=== PATIENT | female | born 1965 | race Caucasian/White ===

== ENCOUNTER 2019-11-26 10:38 | Day surgery (SDC) | payer OTHER, MEDICAID, SELFPAY ==
[2019-11-26] VITALS (7 sets, daily range): BP systolic 117–138; BP diastolic 73–98; PULSE 52–610; RESP 11–16; TEMP 36.4–36.6; O2SAT 99–100; BMI 28.2
--- NOTE | 2019-11-26 | PATH_ITS ---
[facility] Accession Number: [id number] . 01 Material submitted: . PART A: sigmoid colon - SIGMOID COLON POLYP PART B: rectum - RECTAL POLYP . 02 Diagnosis: A. Sigmoid Colon, Polyp: Hyperplastic polyp. . B. Rectum, Polyp: Hyperplastic polyp. MRV 11/27/2019 1000 Local . 02 Electronically signed: . Willie Vergara MD, PhD, Pathologist NPI- [id number] . 01 Gross description: . Part A: SIGMOID COLON POLYP: Received in formalin are 3 fragment(s) of fabian, soft tissue measuring 0.1 x 0.1 x 0.1 cm to 0.3 x 0.3 x 0.2 cm submitted entirely in 1 cassette(s) Part B: RECTAL POLYP: Received in formalin are 2 fragment(s) of fabian, soft tissue measuring 0.1 x 0.1 x 0.1 cm to 0.4 x 0.4 x 0.2 cm submitted entirely in 1 cassette(s) /[facility] [place] 11/26/2019 1948 Local . 02 Pathologist provided ICD-10: K63.5, K62.1 . 02 CPT . 644090, 309188 Performed at: 01 [facility] [address], [place], [place] [id number] MD Da Sanchez MD Phone: [phone] Performed at: 02 [facility] [address] [place], [place] [id number] MD Wendy King MD Phone: [phone]
[2019-11-26] MEDS: SODIUM CHLORIDE 0.9% 1,000 ML 200 ML IV (11:05)
--- NOTE | 2019-11-26 11:30 | PM.HP.1 ---
History of Present Illness History of Present Illness Date Patient Seen: 11/26/19 Time Patient Seen: 11:30 Chief complaint: [id number] Narrative: Patient is woman here for screening colonoscopy. This is her 1st exam. She has not had any recent symptoms except for a small lump near her anus which she thinks has gone away Patient History Family & Social History Social History: household members spouse Tobacco & Substance use: Tobacco type cannabis/marijuana Smoking Status Former smoker alcohol intake never Substance Use Type marijuana Meds Home Medications and Allergies Home Medications Medication Instructions Recorded Confirmed Type No Known Home Medications 11/26/19 11/26/19 History Allergies Allergy/AdvReac Type Severity Reaction Status Date / Time latex Allergy Verified 11/26/19 11:01 petrolatum,white AdvReac Mild Verified 11/26/19 11:01 [From Petroleum Jelly] Review of Systems Review of Systems ROS: Yes All systems reviewed with the patient and are negative except as otherwise documented Exam Vital Signs (past 8 hours): - 11/26/19 11:08 Temperature 97.7 F Pulse Rate 72 Respiratory Rate 16 Blood Pressure 126/76 Pulse Oximetry 100 Oxygen Delivery Method Room Air Narrative Exam Narrative: Pleasant cooperative patient no apparent distress. Lungs are clear to auscultation. No rales or rhonchi. Heart regular rate and rhythm no murmur gallop. Abdomen is soft nontender without mass. No obvious hernias. Patient is alert and oriented x3. Assessment & Plan Assessment & Plan narrative: The patient for a screening colonoscopy. I have discussed the procedure with them. Risks of bleeding, perforation which would necessitate major operation, failure to find remove all lesions, the potential tattoo were all discussed. All questions were answered. They wished to proceed.
--- NOTE | 2019-11-26 11:32 | PM.PREOP ---
Pre-operative Note Interval Note History & Physical reviewed/Exam performed by Physician: Yes Changes to H&P: No ASA Class (for procedural sedation): I
[2019-11-26] MEDS: fentaNYL 250 MCG/5 ML INJ IV (12:05)
[2019-11-26] MEDS: MIDAZOLAM 5 MG/ML VIAL 4 MG IV (12:05)
--- NOTE | 2019-11-26 12:10 | PM.OP.ENDO ---
Operative Date/Time/Diagnoses Date of procedure: 11/26/19 Time of procedure: 12:10 Pre-op diagnosis: Screening exam. This is her 1st colonoscopy. Post-op diagnosis: same (Two small polyps removed. Extensive sigmoid diverticulosis with tortuosity.) Procedure & Clinicians Study performed: Colonoscopy with cold biopsy Same procedure as scheduled: Yes Indications: Screening for colon cancer Surgeon: Garry Watson Procedure Notes SCOAP/Timeout: Perform Procedure in detail: The patient was placed in the left lateral decubitus position and underwent IV sedation directed by the surgeon consisting of fentanyl and Versed. Digital exam was unremarkable. The scope was inserted and advanced through the rectum into the sigmoid, descending, transverse, and ascending colon. The patient had a very large number of sigmoid diverticuli with some tortuosity and narrowing. There also was a small polyp seen in the sigmoid which was biopsied and removed.. The cecum was reached identified by the ileocecal valve and the appendiceal opening. The ileocecal valve was successfully cannulated. The terminal ileum was normal in appearance. The scope was gradually brought out. One additional Polyp were found at the rectum and was biopsied and removed.. The scope ultimately was retroflexed in the rectum. The appearance was normal except for some minor scarring.. The scope was removed and the patient tolerated the procedure well. The prep was very good. Scope withdrawal time: 9 minutes Sedation minutes: 27 Findings: diverticulosis and polyp Specimen(s): other (Polyps) Complications: none Post-procedure Recommendations: Colonscopy in 5 years Follow up: as needed Disposition: PACU
== END 2019-11-26 13:08 | disposition home or self-care (01) ==
PROVIDERS: PCP Registered Nurse; Referring Provider Specialist; Visit Provider Specialist
PROC: 0DJD8ZZ Inspection of Lower Intestinal Tract, Via Natural or Artificial Opening Endoscopic (ICD-10-PCS; CPT 45378; principal; 2019-11-26 11:45)
DX: Z12.11 Encounter for screening for malignant neoplasm of colon (principal); K57.30 Diverticulosis of large intestine without perforation or abscess without bleeding; K63.5 Polyp of colon; K62.1 Rectal polyp
CPT/HCPCS: 45380; 99152; 99153; J2250; J3010

== ENCOUNTER → 2020-01-22 13:44 | Outpatient (CLI) | payer OTHER, MEDICAID, SELFPAY | PROVIDERS: PCP Nurse Practitioner Family; Visit Provider Nurse Practitioner Family | DX: R23.8 Other skin changes (principal); S61.002A Unspecified open wound of left thumb without damage to nail, initial encounter | CPT/HCPCS: 87070; 87075; 87077; 87186; 87205; 87255 ==

== ENCOUNTER → 2020-05-28 11:23 | Outpatient (CLI) | payer OTHER, MEDICAID, SELFPAY ==
[2020-05-28 12:42] LABS: Hematocrit 40.5 % (36-46); Hemoglobin 13.5 g/dL (12.0-16.0); Mean Corpuscular HGB Conc 33.5 % (30-36); Mean Corpuscular Hemoglobin 30.7 PG (26-34); Mean Corpuscular Volume 91.6 fL (80-100); Platelet Count 409 X10^3/uL (150-400); Red Blood Cell Count 4.42 X10^6/uL (4.0-5.2); Red Cell Distribution Width 13.4 % (11.6-14.8); White Blood Cell Count 7.5 X10^3/uL (4.5-11.0)
[2020-05-28 13:13] LABS: Alanine Aminotransferase 23 IU/L (<35); Albumin 4.5 g/dL (3.5-5.0); Albumin Globulin Ratio 1.5 (1.0-2.8); Alkaline Phosphatase 82 U/L (38-126); Aspartate Aminotransferase 28 IU/L (14-36); BUN Creatinine Ratio 17.7 (6-22); Bilirubin Total 0.8 mg/dL (0.2-1.3); Blood Urea Nitrogen 14 mg/dL (7-17); Calcium 9.9 mg/dL (8.4-10.2); Carbon Dioxide 27 mmol/L (22-32); Chloride 103 mmol/L (98-107); Cholesterol 280 mg/dL (140-199); Estimated Glomerular Filt Rate > 60.0 mL/min (>60); Glucose 81 mg/dL (70-100); HDL Cholesterol 52 mg/dL (40-60); HEMOLYSIS < 15 (0-50); LDL Cholesterol Calculated 168 mg/dL (<100); Sodium 137 mmol/L (137-145); Total Protein 7.5 g/dL (6.3-8.2); Triglycerides 302 mg/dL (35-150)
== END ==
PROVIDERS: PCP Nurse Practitioner Family; Referring Provider Nurse Practitioner Family; Visit Provider Nurse Practitioner Family
DX: Z00.00 Encounter for general adult medical examination without abnormal findings (principal); Z13.6 Encounter for screening for cardiovascular disorders
CPT/HCPCS: 36415; 80053; 80061; 85027

== ENCOUNTER → 2020-06-17 13:43 | Outpatient (CLI) | payer OTHER, MEDICAID, SELFPAY ==
--- NOTE | 2020-06-17 14:08 | DI.ECHO.S_ITS ---
Echocardiogram Report + + :Name: ILA PERRY Study Date: 06/17/2020 Height: 66 in : :[facility] Weight: 180 lb : : Gender: Female BSA: 1.9 m2 : :: 1965 Age: 55 yrs BP: 160/83 mmHg: :Reason For Study: PALPITATIONS : :Ordering Physician: EVITA, : :WILBERTO Performed By: Marcela Stewart : :Referring: WILBERTO JAMA : + + Interpretation Summary The left ventricle is normal in size and wall thickness. Left ventricular systolic function is normal without focal wall motion abnormalities. The ejection fraction is estimated to be 60-65%. Diastolic parameters suggest probable normal left ventricular diastolic function and normal filling pressures. The right ventricle is normal in size and function. The left atrial size is normal. Right atrial size is normal. There is no significant valvular heart disease. The aortic root is normal size. Procedure: A two-dimensional transthoracic echocardiogram with color flow and Doppler was performed. The study quality was technically adequate. There is no prior echocardiogram noted for this patient. Left Ventricle: The left ventricle is normal in size and wall thickness. Left ventricular systolic function is normal without focal wall motion abnormalities. The ejection fraction is estimated to be 60-65%. Diastolic parameters suggest probable normal left ventricular diastolic function and normal filling pressures. Right Ventricle: The right ventricle is normal in size and function. Atria: The left atrial size is normal. Right atrial size is normal. There is no Doppler evidence for an interatrial shunt. Mitral Valve: The mitral valve is normal in structure and function. Aortic Valve: The aortic valve is trileaflet. The aortic valve opens well. There is no aortic valve stenosis. No aortic regurgitation is present. Tricuspid Valve: The tricuspid valve is normal in structure and function. Pulmonary artery pressures cannot be estimated because of the lack of a measurable TR jet velocity but the IVC suggests a CVP of around 3 mmHg. There is a trace or physiologic amount of tricuspid regurgitation. Pulmonic Valve: The pulmonic valve leaflets are thin and pliable; valve motion is normal. There is no pulmonic valvular regurgitation. There is no significant valvular heart disease. Great Vessels: The aortic root is normal size. The dimensions of the ascending aorta are normal. The IVC is of normal diameter and collapses greater than 50% with a sniff. This suggests a low right atrial pressure of 3 mm Hg. Pericardium/ Pleura There is no pericardial effusion. There is no pleural effusion. MMode/2D Measurements & Calculations LVIDd: 4.0 cm LVOT diam: 2.1 cm LVIDs: 2.7 cm Ao root diam: 3.1 cm FS: 33.7 % asc Aorta Diam: 3.2 cm EPSS: 0.57 cm Ao Arch Diam (Prox Trans): 2.4 cm IVSd: 0.87 cm LVPWd: 0.89 cm LV gambino. diameter/BSA (cm/m^2): 2.1 LV sys. diameter/BSA (cm/m^2): 1.4 LA A2 area: 13.9 cm2 RA long axis: 4.2 cm LA A4 area: 13.0 cm2 RA area: 11.1 cm2 LA length (vol): 4.0 cm RA vol: 24.5 ml LA vol: 38.3 ml RA : 12.8 ml/m2 LA vol index: 20.0 ml/m2 IVC diam: 1.3 cm RVD1 (basal): 3.4 cm TAPSE: 2.3 cm Doppler Measurements & Calculations Ao V2 max: 127.5 cm/sec LVOT Max Som: 89.1 cm/sec Ao V2 mean: 85.7 cm/sec LV V1 max P.2 mmHg Ao max P.5 mmHg LV V1 VTI: 19.4 cm Ao mean P.3 mmHg LEIGH ANN(I,D): 2.4 cm2 Ao V2 VTI: 27.7 cm LEIGH ANN(V,D): 2.4 cm2 sev ratio: 0.70 LEIGH ANN indexed to BSA (cm^2/m^2): 1.3 MV E max som: 77.1 cm/sec PA V2 max: 81.5 cm/sec MV A max osm: 74.1 cm/sec PA V2 mean: 54.6 cm/sec MV E/A: 1.0 PA mean P.4 mmHg Med Peak E' Som: 9.5 cm/sec PA pr(Accel): 20.8 mmHg E/E' med: 8.1 Lat Peak E' Som: 12.7 cm/sec E/E' lat: 6.1 E/e' average: 7.1 MV dec time: 0.19 sec SV(LVOT): 67.9 ml Reading Physician:07:40 PM
== END ==
PROVIDERS: PCP Nurse Practitioner Family; Referring Provider Nurse Practitioner Family; Visit Provider Nurse Practitioner Family
DX: R00.2 Palpitations (principal)
CPT/HCPCS: 93306

== ENCOUNTER → 2020-07-31 10:55 | Outpatient (CLI) | payer OTHER, MEDICAID, SELFPAY ==
--- NOTE | 2020-07-31 10:56 | DI.MG.S_ITS ---
BILATERAL DIGITAL SCREENING MAMMOGRAM 3D/2D WITH CAD: 07/31/2020 CLINICAL: Routine screening. Family history of breast cancer. Comparison is made to exams dated: 02/15/2016 mammogram and 02/18/2014 mammogram - [facility]. There are scattered fibroglandular elements in both breasts. Current study was also evaluated with a Computer Aided Detection (CAD) system. No significant masses, calcifications, or other findings are seen in either breast. There has been no significant interval change. IMPRESSION: NEGATIVE There is no mammographic evidence of malignancy. A 1 year screening mammogram is recommended. This exam was interpreted at Station ID: [id number]. NOTE: For mammograms, a report in lay terms will be sent to the patient. Approximately 15% of breast malignancies will not be visualized mammographically. In the management of a palpable breast mass, a negative mammogram must not discourage biopsy of a clinically suspicious lesion. Electronically Signed By: Suleiman samaniego/vee:07/31/2020 17:03:55 letter sent: Normal Exam ACR BI-RADS Category 1: Negative 3341F
== END ==
PROVIDERS: PCP Nurse Practitioner Family; Referring Provider Nurse Practitioner Family; Visit Provider Nurse Practitioner Family
DX: Z12.31 Encounter for screening mammogram for malignant neoplasm of breast (principal); Z80.3 Family history of malignant neoplasm of breast
CPT/HCPCS: 77063; 77067

== ENCOUNTER → 2020-12-31 13:58 | Outpatient (CLI) | payer OTHER, MEDICAID, SELFPAY ==
--- NOTE | 2020-12-31 14:01 | DI.RAD.S_ITS ---
PROCEDURE: XR FINGER LT MIN 2V INDICATIONS: r/out osteomyelitis TECHNIQUE: AP hand, 2 views of the 1st finger(s) acquired. COMPARISON: None. FINDINGS: Bones: No fractures or dislocations. No suspicious bony lesions. Soft tissues: No suspicious soft tissue calcifications. IMPRESSION: No osteomyelitis found at the 1st ray. Dictated by: Reggie Ch M.D. on 12/31/2020 at 14:50 Approved by: Reggie Ch M.D. on 12/31/2020 at 14:51
== END ==
PROVIDERS: PCP Nurse Practitioner Family; Referring Provider Nurse Practitioner Family; Visit Provider Nurse Practitioner Family
DX: M79.89 Other specified soft tissue disorders (principal)
CPT/HCPCS: 73140

== ENCOUNTER → 2021-11-11 10:02 | Outpatient (CLI) | payer OTHER, MEDICAID, SELFPAY ==
--- NOTE | 2021-11-11 10:06 | DI.RAD.S_ITS ---
PROCEDURE: XR FOOT RT 2V INDICATIONS: pain TECHNIQUE: 2 views of the foot were acquired. COMPARISON: None. FINDINGS: Bones: No acute fractures or dislocations. No suspicious bony lesions. Degenerative changes are seen in the interphalangeal joints of the toes. Mildly prominent sesamoid bones are seen at the 2nd through 5th metatarsophalangeal joints. Soft tissues: No suspicious soft tissue calcification. IMPRESSION: No acute osseous abnormality. If the symptoms persist, consider cross sectional imaging such as MRI or CT for further assessment. Dictated by: Suleiman Butler M.D. on 11/11/2021 at 12:41 Approved by: Suleiman Butler M.D. on 11/11/2021 at 12:42
--- NOTE | 2021-11-11 10:06 | DI.RAD.S_ITS ---
PROCEDURE: XR KNEE RT 3V INDICATIONS: pain TECHNIQUE: 3 views of the knee were acquired. COMPARISON: None. FINDINGS: Bones: No fractures or dislocations. No suspicious bony lesions. Soft tissues: No joint effusion. No suspicious soft tissue calcifications. IMPRESSION: No acute fracture. No osseous lesion. If symptoms and/or clinical suspicion for pathology persist, further assessment with repeat, or advanced imaging (e.g., CT, MRI, or bone scan) may be helpful for further assessment. Dictated by: Tammie Yo M.D. on 11/11/2021 at 10:54 Approved by: Tammie Yo M.D. on 11/11/2021 at 10:54
== END ==
PROVIDERS: PCP Nurse Practitioner Family; Referring Provider Nurse Practitioner Family; Visit Provider Nurse Practitioner Family
DX: M25.561 Pain in right knee (principal); M79.671 Pain in right foot
CPT/HCPCS: 73562; 73620

== ENCOUNTER → 2021-12-01 15:08 | Outpatient (CLI) | payer OTHER, MEDICAID, SELFPAY ==
--- NOTE | 2021-12-01 15:11 | DI.MG.S_ITS ---
BILATERAL DIGITAL SCREENING MAMMOGRAM 3D/2D WITH CAD: 12/01/2021 CLINICAL: Routine screening. Family history of breast cancer. Comparison is made to exams dated: 07/31/2020 mammogram - [facility], 02/15/2016 mammogram, and 02/18/2014 mammogram - [facility]. There are scattered fibroglandular elements in both breasts. Current study was also evaluated with a Computer Aided Detection (CAD) system. No significant masses, calcifications, or other findings are seen in either breast. There has been no significant interval change. IMPRESSION: NEGATIVE There is no mammographic evidence of malignancy. A 1 year screening mammogram is recommended. This exam was interpreted at Station ID: [id number]. NOTE: For mammograms, a report in lay terms will be sent to the patient. Approximately 15% of breast malignancies will not be visualized mammographically. In the management of a palpable breast mass, a negative mammogram must not discourage biopsy of a clinically suspicious lesion. Electronically Signed By: Danya hein/vee:12/02/2021 10:48:29 letter sent: Normal Exam ACR BI-RADS Category 1: Negative 3341F
== END ==
PROVIDERS: PCP Nurse Practitioner Family; Referring Provider Nurse Practitioner Family; Visit Provider Nurse Practitioner Family
DX: Z12.31 Encounter for screening mammogram for malignant neoplasm of breast (principal); Z80.3 Family history of malignant neoplasm of breast
CPT/HCPCS: 77063; 77067

== ENCOUNTER → 2022-04-06 15:30 | Outpatient (CLI) | payer OTHER, MEDICAID, SELFPAY | PROVIDERS: PCP Nurse Practitioner; Referring Provider Nurse Practitioner; Visit Provider Nurse Practitioner | DX: I10 Essential (primary) hypertension (principal) | CPT/HCPCS: 93005; 93010 ==

== ENCOUNTER → 2022-05-16 14:56 | Outpatient (CLI) | payer OTHER, MEDICAID, SELFPAY ==
--- NOTE | 2022-05-16 14:57 | DI.ECHO.S_ITS ---
[facility] +---------+ : : [address] [place] [place] : : : : [id number] : : : : Phone: [phone]+ Echocardiogram Report + + :Name: ILA PERRY Study Date: 05/16/2022 Height: 66 in : :[facility]Location: Weight: 190 lb : : Gender: Female BSA: 2.0 m2 : :: 1965 Age: 57 yrs BP: 117/76 mmHg: :Reason For Study: HYPERTENSION : :Ordering Physician: KACEY, : :JEY Performed By: Marcela Stewart : :Referring: JEY ERAZO : + + Interpretation Summary Normal left ventricle size with ejection fraction 60-65%. Normal right ventricle and both atria. No valvular abnormality. Comparison is made with the echocardiogram of 06/17/2020, there has been no significant change. Procedure: A two-dimensional transthoracic echocardiogram with color flow and Doppler was performed. The study quality was technically adequate. Comparison is made with the echocardiogram of 06/17/2020. The patient was in sinus rhythm with heart rates between 55-80 bpm during the exam. Left Ventricle: The left ventricle is normal in size and wall thickness. The ejection fraction is estimated to be 60-65%. There are no focal wall motion abnormalities. Right Ventricle: The right ventricle is normal in size and function. Atria: The left atrial size is normal. Right atrial size is normal. There is no Doppler evidence for an interatrial shunt. Mitral Valve: The mitral valve is normal in structure and function. There is no mitral regurgitation noted. Aortic Valve: The aortic valve is trileaflet. The aortic valve opens well. There is no aortic valve stenosis. No aortic regurgitation is present. Tricuspid Valve: The tricuspid valve is normal in structure and function. There is trace tricuspid regurgitation. Pulmonic Valve: The pulmonic valve is not well visualized. There is no pulmonic valvular regurgitation. Great Vessels: The aortic root is normal size. The dimensions of the ascending aorta are normal. The IVC is of normal diameter and collapses greater than 50% with a sniff. This suggests a low right atrial pressure of 3 mm Hg. Pericardium/ Pleura There is no pericardial effusion. There is no pleural effusion. MMode/2D Measurements & Calculations LVIDd: 4.2 cm LVOT diam: 2.1 cm LVIDs: 2.8 cm Ao root diam: 3.3 cm FS: 33.0 % asc Aorta Diam: 3.3 cm IVSd: 0.90 cm Ao Arch Diam (Prox Trans): 2.2 cm LVPWd: 0.73 cm LV gambino. diameter/BSA (cm/m^2): 2.2 LV sys. diameter/BSA (cm/m^2): 1.5 LA A2 area: 18.7 cm2 RA long axis: 5.4 cm LA A4 area: 16.6 cm2 RA area: 17.9 cm2 LA length (vol): 5.3 cm RA vol: 50.7 ml LA vol: 49.9 ml RA : 25.9 ml/m2 LA vol index: 25.5 ml/m2 IVC diam: 1.8 cm RVD1 (basal): 4.1 cm TAPSE: 2.2 cm Doppler Measurements & Calculations Ao V2 max: 154.6 cm/sec LVOT Max Som: 124.6 cm/sec Ao V2 mean: 99.2 cm/sec LV V1 max P.2 mmHg Ao max P.6 mmHg LV V1 VTI: 24.3 cm Ao mean P.6 mmHg LEIGH ANN(I,D): 2.8 cm2 Ao V2 VTI: 31.3 cm LEIGH ANN(V,D): 2.9 cm2 sev ratio: 0.78 LEIGH ANN indexed to BSA (cm^2/m^2): 1.4 MV E max som: 67.6 cm/sec PA V2 max: 111.1 cm/sec MV A max som: 82.0 cm/sec PA V2 mean: 77.6 cm/sec MV E/A: 0.82 PA mean P.7 mmHg Med Peak E' Som: 9.2 cm/sec PA pr(Accel): 24.2 mmHg E/E' med: 7.3 Lat Peak E' Som: 12.3 cm/sec E/E' lat: 5.5 E/e' average: 6.4 MV dec time: 0.28 sec SV(LVOT): 87.2 ml Electronically signed by: Michele Crocker on Reading Physician:05/16/2022 04:13 PM
[2022-05-16 19:52] LABS: Hep C Virus Ab w/Reflex Quant NEGATIVE s/c (NEGATIVE)
== END ==
PROVIDERS: PCP Nurse Practitioner; Referring Provider Nurse Practitioner; Visit Provider Nurse Practitioner
DX: I21.29 ST elevation (STEMI) myocardial infarction involving other sites (principal); I10 Essential (primary) hypertension; I49.8 Other specified cardiac arrhythmias; Z11.59 Encounter for screening for other viral diseases
CPT/HCPCS: 36415; 86803; 93306

== ENCOUNTER → 2022-08-01 15:38 | Outpatient (ROUT) | payer OTHER, MEDICAID, SELFPAY ==
[2022-08-03 13:32] LABS: Fecal Immunochemical Test Negative (Negative)
== END ==
PROVIDERS: PCP Nurse Practitioner; Visit Provider Nurse Practitioner
DX: Z12.11 Encounter for screening for malignant neoplasm of colon (principal)
CPT/HCPCS: 82274

== ENCOUNTER → 2023-03-24 10:46 | Outpatient (CLI) | payer OTHER, MEDICAID, SELFPAY ==
--- NOTE | 2023-03-24 10:47 | DI.RAD.S_ITS ---
PROCEDURE: XR KNEE LT 3V INDICATIONS: Left knee pain TECHNIQUE: 3 views of the knee were acquired. COMPARISON: [facility], CR, XR KNEE 4+ VIEWS BILATERAL, 01/05/2022, 18:27. [facility], CR, XR KNEE RT 3V, 11/11/2021, 10:04. FINDINGS: Bones: No acute fractures or dislocations. No suspicious bony lesions. Moderate medial lateral compartment joint space narrowing. Soft tissues: Possible small joint effusion. No suspicious soft tissue calcifications. IMPRESSION: No acute osseous abnormality. Possible small nonspecific knee effusion. If symptoms persist, follow-up radiographs and/or CT or MRI may be helpful for further evaluation. Dictated by: Suleiman Brown M.D. on 03/24/2023 at 12:17 Approved by: Suleiman Brown M.D. on 03/24/2023 at 12:20
== END ==
PROVIDERS: PCP Nurse Practitioner; Referring Provider Nurse Practitioner Family; Visit Provider Nurse Practitioner Family
DX: Z00.00 Encounter for general adult medical examination without abnormal findings (principal); M25.562 Pain in left knee
CPT/HCPCS: 36415; 73562; 80053; 80061; 82043; 82570; 84439; 84443; 84481; 85025

== ENCOUNTER → 2023-03-24 11:27 | Outpatient (CLI) | payer OTHER, MEDICAID, SELFPAY ==
[2023-03-24 13:20] LABS: Add Manual Diff / Slide Review NO; Basophils Absolute Auto 100 /uL (0-100); Basophils Percent Auto 1.2 % (0-2); Eosinophils Absolute Auto 400 /uL (0-450); Eosinophils Percent Auto 4.6 % (2-4); Hematocrit 38.8 % (36-46); Hemoglobin 13.1 g/dL (12.0-16.0); Lymphocytes Absolute Auto 3400 /uL (1100-4500); Lymphocytes Percent Auto 36.9 % (25-40); Mean Corpuscular HGB Conc 33.8 % (30-36); Mean Corpuscular Hemoglobin 30.6 PG (26-34); Mean Corpuscular Volume 90.4 fL (80-100); Monocytes Absolute Auto 600 /uL (0-900); Monocytes Percent Auto 6.4 % (3-14); Neutrophils Absolute Auto 4700 /uL (1500-7000); Neutrophils Percent Auto 50.9 % (50-75); Platelet Count 449 X10^3/uL (150-400); Red Blood Cell Count 4.29 X10^6/uL (4.0-5.2); White Blood Cell Count 9.2 X10^3/uL (4.5-11.0)
[2023-03-24 13:49] LABS: Alanine Aminotransferase 28 IU/L (<35); Albumin 4.4 g/dL (3.5-5.0); Albumin Globulin Ratio 1.5 (1.0-2.8); Alkaline Phosphatase 86 U/L (38-126); Aspartate Aminotransferase 25 IU/L (14-36); BUN Creatinine Ratio 18.6 (6-22); Bilirubin Total 0.6 mg/dL (0.2-1.3); Blood Urea Nitrogen 13 mg/dL (7-17); Calcium 9.6 mg/dL (8.4-10.2); Carbon Dioxide 21 mmol/L (22-32); Chloride 104 mmol/L (98-107); Cholesterol 287 mg/dL (140-199); Estimated Glomerular Filt Rate > 60 mL/min (>60); Globulin 2.9 g/dL (1.7-4.1); Glucose 97 mg/dL (70-100); HDL Cholesterol 51 mg/dL (40-60); HEMOLYSIS < 15 (0-50); Potassium 4.8 mmol/L (3.4-5.1); Sodium 135 mmol/L (137-145); Total Protein 7.3 g/dL (6.3-8.2); Triglycerides 444 mg/dL (35-150)
[2023-03-24 13:57] LABS: Free T4, Direct Thyroxine 1.07 ng/dL (0.78-2.19)
[2023-03-24 14:10] LABS: Thyroid Stimulating Hormone 4.41 uIU/mL (0.47-4.68)
[2023-03-24 15:02] LABS: Creatinine Urine Random 64.2 mg/dL
[2023-03-24 15:07] LABS: Microalbumin Urine Random < 0.6 mg/dL (0-1.6)
== END ==
PROVIDERS: PCP Nurse Practitioner; Referring Provider Nurse Practitioner; Visit Provider Nurse Practitioner
DX: Z00.00 Encounter for general adult medical examination without abnormal findings (principal)
CPT/HCPCS: 36415; 80053; 80061; 82043; 82570; 84439; 84443; 84481; 85025

== ENCOUNTER → 2023-04-10 11:47 | Outpatient (CLI) | payer OTHER, MEDICAID, SELFPAY ==
[2023-04-10 13:44] LABS: Cholesterol 298 mg/dL (140-199); HDL Cholesterol 54 mg/dL (40-60); LDL Cholesterol Calculated 169 mg/dL (<100); Triglycerides 373 mg/dL (35-150)
--- NOTE | 2023-04-10 14:39 | DI.MG.S_ITS ---
BILATERAL DIGITAL SCREENING MAMMOGRAM 3D/2D WITH CAD: 04/10/2023 CLINICAL: Routine screening. Family history of breast cancer. Comparison is made to exams dated: 12/01/2021 mammogram, 07/31/2020 mammogram - [facility], and 02/15/2016 mammogram - [facility]. There are scattered areas of fibroglandular density in both breasts (category b / 25%-50% glandular tissue). Current study was also evaluated with a Computer Aided Detection (CAD) system. No significant masses, calcifications, or other findings are seen in either breast. There has been no significant interval change. IMPRESSION: NEGATIVE There is no mammographic evidence of malignancy. A 1 year screening mammogram is recommended. Based on the Tyrer Cuzick model (a risk assessment model) the patient's lifetime risk is 6.8% and her 10 year risk is 2.5%. According to the ACR, ACS, and NCCN guidelines, an annual breast MRI exam along with mammogram is recommended if the patient's lifetime risk is 20% or greater. This exam was interpreted at Station ID: [id number]. NOTE: For mammograms, a report in lay terms will be sent to the patient. Approximately 15% of breast malignancies will not be visualized mammographically. In the management of a palpable breast mass, a negative mammogram must not discourage biopsy of a clinically suspicious lesion. Electronically Signed By: Kj machuca/vee:04/10/2023 15:26:14 letter sent: Normal Exam ACR BI-RADS Category 1: Negative 3341F
--- NOTE | 2023-04-10 14:39 | DI.MRI.S_ITS ---
PROCEDURE: MR KNEE LT WO CON INDICATIONS: left medial knee pain persisting, hx miniscus tear and ACL TECHNIQUE: Noncontrast sagittal PD fast spin echo and T2 fast spin echo with fat saturation, sagittal 3-D FLASH with fat saturation; coronal T1 spin echo and PD fast spin echo with fat saturation, and axial PD fast spin echo with fat saturation through the knee. COMPARISON: Located [facility], CR, XR KNEE LT 3V, 03/24/2023, 10:45. FINDINGS: Image quality: Excellent. Anterior Cruciate Ligament: Intact. Posterior Cruciate Ligament: Intact. Medial Collateral Ligament: Intact. Lateral Collateral Ligament: Intact. Medial Meniscus: There is complex tearing of the medial meniscus. At the meniscal body, there is a superiorly displaced meniscal flap component with meniscal tissue extending into the medial femoral gutter. At the posterior horn, there is a horizontal component extending to the free edge margin. Lateral Meniscus: There is horizontal tearing of the body of the lateral meniscus extending to the free edge margin. Medial and Lateral Tendons: The semimembranosus tendon insertions and meniscocapsular junction appear intact. Visualized portions of the pes anserinus tendons appear normal. No abnormal bursal fluid. The long and short heads of the biceps femoris tendon appear intact. Mild distal popliteus tendinosis. No signs of posterolateral corner injury. Iliotibial band appears normal. Anterior Structures: The quadriceps and patellar tendons appear intact. No patellar subluxation. No femoral trochlear dysplasia or ventral trochlear prominence. No edema in the infrapatellar fat pad. Bones: No acute trabecular bone injury or fracture. Medial Femorotibial Cartilage: Moderate to high-grade partial-thickness cartilage irregularity throughout the weight-bearing portion of the medial femorotibial compartment with mild subchondral cystic changes and small marginal osteophytes. Lateral Femorotibial Cartilage: Moderate partial-thickness cartilage thinning irregularity. Patellofemoral Cartilage: Shallow cartilage fissuring is seen at the lateral patellar facet. There is mild cartilage irregularity in the trochlear groove. Soft Tissues: A moderate joint effusion is present. There is a small medial popliteal cyst. The musculature surrounding the knee is normal in bulk. IMPRESSION: 1. Complex tearing of the medial meniscus with a small superiorly displaced flap component at the meniscal body extending into the medial femoral gutter as well as a horizontal component at the posterior horn extending to the free edge margin. 2. Small horizontal tear of the body of the lateral meniscus extending to the free edge margin. 3. 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 There is grade 2-3 chondromalacia in the lateral compartment and mild grade 2 chondromalacia and shallow fissuring in the anterior compartment. 4. Cruciate and collateral ligaments are intact. No acute trabecular bone injury. 5. Moderate joint effusion. Small medial popliteal cyst. Approved by: Suleiman Butler M.D. on 04/11/2023 at 10:06
[2023-04-10 15:49] LABS: HIV 1 & 2 Ab/Ag 4th Gen Combo NEGATIVE (NEGATIVE)
== END ==
PROVIDERS: PCP Nurse Practitioner; Referring Provider Nurse Practitioner; Visit Provider Nurse Practitioner
DX: Z12.31 Encounter for screening mammogram for malignant neoplasm of breast (principal); Z80.3 Family history of malignant neoplasm of breast; Z11.4 Encounter for screening for human immunodeficiency virus [HIV]; S83.232A Complex tear of medial meniscus, current injury, left knee, initial encounter; S83.282A Other tear of lateral meniscus, current injury, left knee, initial encounter; M94.262 Chondromalacia, left knee; M25.462 Effusion, left knee; M71.22 Synovial cyst of popliteal space [Baker], left knee; M25.562 Pain in left knee; E78.2 Mixed hyperlipidemia
CPT/HCPCS: 36415; 73721; 77063; 77067; 80061; 87389

== ENCOUNTER → 2024-01-04 09:21 | Outpatient (CLI) | payer OTHER, MEDICAID, SELFPAY ==
[2024-01-04 10:21] LABS: Cholesterol 264 mg/dL (140-199); HDL Cholesterol 48 mg/dL (40-60); LDL Cholesterol Calculated 165 mg/dL (<100); Triglycerides 257 mg/dL (35-150)
== END ==
PROVIDERS: PCP Nurse Practitioner; Referring Provider Nurse Practitioner; Visit Provider Nurse Practitioner
DX: E78.2 Mixed hyperlipidemia (principal); L03.90 Cellulitis, unspecified
CPT/HCPCS: 36415; 80061; 87070; 87205

== ENCOUNTER → 2024-03-27 11:20 | Outpatient (CLI) | payer OTHER, MEDICAID, SELFPAY ==
[2024-03-27 13:24] LABS: Testosterone 40.8 ng/dL (5.71-77.0)
== END ==
PROVIDERS: PCP Nurse Practitioner; Referring Provider Nurse Practitioner; Visit Provider Nurse Practitioner
DX: R68.82 Decreased libido (principal); R53.83 Other fatigue; Z79.890 Hormone replacement therapy
CPT/HCPCS: 36415; 84403

== ENCOUNTER → 2024-07-31 09:59 | Outpatient (CLI) | payer OTHER, MEDICAID, SELFPAY ==
--- NOTE | 2024-07-31 10:01 | DI.RAD.S_ITS ---
PROCEDURE: XR FOOT LT MIN 3V INDICATIONS: pain across mtp joints and lateral 4/5 digit TECHNIQUE: 3 views of the foot were acquired. COMPARISON: [facility], CR, XR FOOT RT 2V, 11/11/2021, 10:04. [facility], CR, XR FOOT 3+ VIEWS BILATERAL, 01/05/2022, 18:27. FINDINGS: Bones: No acute displaced fracture or dislocation. No high-grade degenerative changes. Mild calcaneal enthesopathy. Mild midfoot degenerative changes. Soft tissues: No suspicious calcifications. IMPRESSION: No acute radiographic abnormality. Mild calcaneal enthesopathy and midfoot degenerative changes. If there is high concern for further derangement, consider MRI evaluation. Dictated by: Kj Cherry M.D. on 07/31/2024 at 14:07 Approved by: Kj Cherry M.D. on 07/31/2024 at 14:08
[2024-07-31 11:17] LABS: Creatinine Urine Random 73.32 mg/dL
[2024-07-31 11:22] LABS: Add Manual Diff / Slide Review NO; Basophils Absolute Auto 100 /uL (0-100); Basophils Percent Auto 0.7 % (0-2); Eosinophils Absolute Auto 200 /uL (0-450); Eosinophils Percent Auto 2.1 % (2-4); Hematocrit 42.5 % (36-46); Hemoglobin 14.3 g/dL (12.0-16.0); Lymphocytes Absolute Auto 4400 /uL (1100-4500); Lymphocytes Percent Auto 43.7 % (25-40); Mean Corpuscular HGB Conc 33.7 % (30-36); Mean Corpuscular Hemoglobin 30.4 PG (26-34); Mean Corpuscular Volume 90.3 fL (80-100); Monocytes Absolute Auto 600 /uL (0-900); Monocytes Percent Auto 5.9 % (3-14); Neutrophils Absolute Auto 4700 /uL (1500-7000); Neutrophils Percent Auto 47.6 % (50-75); Platelet Count 480 X10^3/uL (150-400); Red Blood Cell Count 4.71 X10^6/uL (4.0-5.2); Red Cell Distribution Width 13.4 % (11.6-14.8); White Blood Cell Count 9.9 X10^3/uL (4.5-11.0)
[2024-07-31 11:24] LABS: Microalbumin Urine Random < 0.6 mg/dL (0-1.6)
[2024-07-31 11:46] LABS: Alanine Aminotransferase 23 IU/L (<35); Albumin 4.7 g/dL (3.5-5.0); Albumin Globulin Ratio 1.3 (1.0-2.8); Alkaline Phosphatase 87 U/L (38-126); Aspartate Aminotransferase 28 IU/L (14-36); BUN Creatinine Ratio 13.4 (6-22); Bilirubin Total 0.8 mg/dL (0.2-1.3); Blood Urea Nitrogen 11 mg/dL (7-17); Calcium 9.5 mg/dL (8.4-10.2); Carbon Dioxide 23 mmol/L (22-32); Chloride 105 mmol/L (98-107); Estimated Glomerular Filt Rate > 60 mL/min (>60); Globulin 3.5 g/dL (1.7-4.1); Glucose 97 mg/dL (70-100); HEMOLYSIS < 15 (0-50); Potassium 4.1 mmol/L (3.4-5.1); Sodium 139 mmol/L (137-145); Total Protein 8.2 g/dL (6.3-8.2)
[2024-07-31 12:06] LABS: Free T3, Triiodothyronine Free 3.88 pg/mL (2.77-5.27); Free T4, Direct Thyroxine 0.97 ng/dL (0.78-2.19)
[2024-07-31 12:20] LABS: Thyroid Stimulating Hormone 2.87 uIU/mL (0.47-4.68)
== END ==
PROVIDERS: PCP Nurse Practitioner; Referring Provider Physician Assistant; Visit Provider Physician Assistant
DX: S99.929A Unspecified injury of unspecified foot, initial encounter (principal); Z00.00 Encounter for general adult medical examination without abnormal findings; M77.32 Calcaneal spur, left foot
CPT/HCPCS: 36415; 73630; 80053; 82043; 82570; 84439; 84443; 84481; 85025

== ENCOUNTER → 2024-12-19 09:44 | Outpatient (CLI) | payer OTHER, SELFPAY ==
--- NOTE | 2024-12-19 09:46 | DI.MG.S_ITS ---
MM screening mammo BI: 12/19/2024. BI-RADS: 1 CLINICAL: 59-year old female for bilateral screening mammogram. Tyrer-Cuzick lifetime risk of 9.0%. No personal or first-degree family history of breast cancer. Current reported family history of breast cancer: maternal grandmother. PRIOR EXAMS 04/10/2023, 12/01/2021, 07/31/2020. MAMMOGRAPHY TECHNIQUE: 2D and 3D (tomosynthesis) digital mammographic views obtained, with additional images as needed for full coverage. Current study was also evaluated with a Computer Aided Detection (CAD) system. DENSITY B. There are scattered areas of fibroglandular density. MAMMOGRAPHY FINDINGS Bilateral: No suspicious mass, asymmetry, microcalcification, or other abnormality seen. No significant change from comparison. IMPRESSION: * No evidence of malignancy. RECOMMENDATIONS Bilateral * Annual screening mammography. OVERALL ASSESSMENT CATEGORY BI-RADS-1: Negative. The [employer] recommends annual screening mammography beginning at age 40 for women with average risk of breast cancer. ELECTRONICALLY SIGNED: Alyse Mccarthy M.D. on 12/19/2024 at 01:29:10 PM PT Interpreting Station ID: [id number]
== END ==
PROVIDERS: PCP Family Medicine; Referring Provider Family Medicine; Visit Provider Family Medicine
DX: Z12.31 Encounter for screening mammogram for malignant neoplasm of breast (principal); Z80.3 Family history of malignant neoplasm of breast
CPT/HCPCS: 77063; 77067

== ENCOUNTER → 2025-08-23 11:11 | Outpatient (CLI) | payer SELFPAY | PROVIDERS: PCP Family Medicine; Visit Provider Nurse Practitioner Family | DX: L08.9 Local infection of the skin and subcutaneous tissue, unspecified (principal) | CPT/HCPCS: 87070; 87075; 87205 ==